=== PATIENT | female | born 1955 | race Caucasian/White ===

== ENCOUNTER → 2020-08-20 13:37 | Outpatient (CLI) | payer MEDICARE, MEDICAID, SELFPAY ==
--- NOTE | 2020-08-20 13:40 | DI.RAD.S_ITS ---
PROCEDURE: FL BARIUM SWALLOW INDICATIONS: dysphagia COMPARISON: None. FINDINGS: Function: There is mildly decreased esophageal peristalsis. Slightly delayed esophageal clearance No elicited gastroesophageal reflux. Morphology: Air-contrast images demonstrate normal mucosal morphology. Single contrast views show no esophageal strictures, extrinsic mass effects, or diverticula. Limited images of the stomach demonstrate normal appearance. IMPRESSION: Mild esophageal dysmotility Dictated by: Jay Godfrey M.D. on 08/20/2020 at 15:26 Approved by: Jay Godfrey M.D. on 08/20/2020 at 15:27
== END ==
PROVIDERS: PCP Registered Nurse; Referring Provider Registered Nurse; Visit Provider Registered Nurse
DX: R13.10 Dysphagia, unspecified (principal); K22.4 Dyskinesia of esophagus; M85.852 Other specified disorders of bone density and structure, left thigh; Z78.0 Asymptomatic menopausal state; Z72.0 Tobacco use
CPT/HCPCS: 74220; 77080

== ENCOUNTER 2022-02-08 16:41 | Emergency (ER) | payer MEDICARE, OTHER, MEDICAID, SELFPAY ==
[2022-02-08 16:44] VITALS: BP 172/93; PULSE 98; RESP 18; TEMP 36.9; O2SAT 97; BMI 28.2
[2022-02-08 17:18] LABS: Add Manual Diff / Slide Review NO; Basophils Absolute Auto 0 /uL (0-100); Basophils Percent Auto 0.6 % (0-2); Eosinophils Absolute Auto 100 /uL (0-450); Eosinophils Percent Auto 1.4 % (2-4); Hematocrit 41.1 % (36-46); Hemoglobin 14.2 g/dL (12.0-16.0); Lymphocytes Absolute Auto 1800 /uL (1100-4500); Lymphocytes Percent Auto 23.3 % (25-40); Mean Corpuscular HGB Conc 34.4 % (30-36); Mean Corpuscular Hemoglobin 30.1 PG (26-34); Mean Corpuscular Volume 87.4 fL (80-100); Monocytes Absolute Auto 700 /uL (0-900); Monocytes Percent Auto 8.5 % (3-14); Neutrophils Absolute Auto 5200 /uL (1500-7000); Neutrophils Percent Auto 66.2 % (50-75); Platelet Count 205 X10^3/uL (150-400); Red Blood Cell Count 4.71 X10^6/uL (4.0-5.2); Red Cell Distribution Width 13.8 % (11.6-14.8); White Blood Cell Count 7.8 X10^3/uL (4.5-11.0)
[2022-02-08 17:30] LABS: BUN Creatinine Ratio 27.6 (6-22); Blood Urea Nitrogen 16 mg/dL (7-17); Calcium 9.1 mg/dL (8.4-10.2); Carbon Dioxide 29 mmol/L (22-32); Chloride 106 mmol/L (98-107); Estimated Glomerular Filt Rate > 60.0 mL/min (>60); Glucose 115 mg/dL (80-110); HEMOLYSIS 28 (0-50); Potassium 4.6 mmol/L (3.4-5.1); Sodium 141 mmol/L (137-145)
--- NOTE | 2022-02-08 22:28 | ED_ITS ---
HPI - Extremity Problem General Chief complaint: Extremity Problem,Nontraumatic Stated complaint: LEGS AND FEET BURN Time Seen by Provider: 02/08/22 18:41 Source: patient Mode of arrival: Ambulatory History of Present Illness HPI Narrative: 66-year-old female daily smoker with noncontributory medical history presents with a chief complaint of many months of burning in her bilateral lower extremities. She denies pain specifically but states that they burn and sometimes her toes ache. She denies any fever chills. She denies numbness or tingling. She denies any low back pain, loss of control of bowel or bladder, fever or the use of blood thinners. She denies any recent illness with nausea, vomiting or diarrhea. She denies any dietary change or medication change. She is not having much in the way of symptoms right now. Related Data Home Medications Medication Instructions Recorded Confirmed multivitamin 1 cap PO DAILY 08/14/18 08/08/20 Allergies Allergy/AdvReac Type Severity Reaction Status Date / Time No Known Drug Allergies Allergy Verified 08/08/20 14:12 Review of Systems Review of Systems Narrative: GENERAL: Denies chills, fatigue, malaise, fever, sweats. HEENT: Denies sinus pain, ear pain, sore throat, difficulty swallowing, dizziness. RESPIRATORY: Denies dyspnea, cough, wheezing, hemoptysis, sputum. CARDIOVASCULAR: Denies chest pain, palpitations, orthopnea, edema, GASTROINTESTINAL: Denies nausea, vomiting, abdominal pain, diarrhea, constipation, melena. : Denies dysuria, frequency, incontinence, hematuria, urinary retention. MUSCULOSKELETAL: See HPI SKIN: Denies rash, skin lesions, or other NEUROLOGIC: Denies weakness, headache, numbness, change in speech, confusion, seizures, incoordination. PSYCHIATRIC: No concerning psychosocial issues. 12 point review of systems is negative except for those stated above Patient History Social History Smoking Status: Current every day smoker alcohol intake: former Smoking Status: Current every day smoker Substance Use Type: marijuana Exam Narrative Exam Narrative: GENERAL: [66] year old patient appears stated age. Well-developed patient, in obvious distress HEAD: Atraumatic. Normocephalic. EYES: Pupils equal round and reactive. Extraocular motions intact. No scleral icterus. No injection or drainage. ENT: Nose without bleeding, purulent drainage. Throat without erythema, tonsillar hypertrophy or exudate. Airway patent. NECK: Trachea midline. Non tender CARDIOVASCULAR: Regular rate and rhythm without murmurs, gallops, or rubs. RESPIRATORY: Clear to auscultation. Breath sounds equal bilaterally. No wheezes, rales, or rhonchi. GASTROINTESTINAL: Abdomen soft, non-tender, nondistended. EXTREMITIES: No edema or joint tenderness. BACK: Nontender without deformity or crepitance. No flank tenderness. NEURO: AOx3. SKIN: No rash or erythema of visible areas Initial Vital Signs Initial Vital Signs: Vital Signs Temperature 98.5 F 02/08/22 16:44 Pulse Rate 98 H 02/08/22 16:44 Respiratory Rate 18 02/08/22 16:44 Blood Pressure 172/93 H 02/08/22 16:44 Pulse Oximetry 97 02/08/22 16:44 Course Orders Ordered: ED Orders 02/08/22 17:05 BMP [Basic Metabolic Panel] Stat Complete Blood Count AUTO DIFF Stat Vital Signs Vital signs: Vital Signs - 8 hr 02/08/22 16:44 Temperature 98.5 F Pulse Rate 98 H Respiratory Rate 18 Blood Pressure 172/93 H Pulse Oximetry 97 MDM - Extremity (Nontraumatic) Lab Data Result diagrams: 02/08/22 17:05 02/08/22 17:05 Labs: Lab Results 02/08/22 02/08/22 Range/Units 17:05 17:05 WBC 7.8 (4.5-11.0) X10^3/uL RBC 4.71 (4.0-5.2) X10^6/uL Hgb 14.2 (12.0-16.0) g/dL Hct 41.1 (36-46) % MCV 87.4 (80-100) fL MCH 30.1 (26-34) PG MCHC 34.4 (30-36) % RDW 13.8 (11.6-14.8) % Plt Count 205 (150-400) X10^3/uL Neut % (Auto) 66.2 (50-75) % Lymph % (Auto) 23.3 L (25-40) % Roane % (Auto) 8.5 (3-14) % Eos % (Auto) 1.4 L (2-4) % Baso % (Auto) 0.6 (0-2) % Neut # (Auto) 5200 (1209-5110) /uL Lymph # (Auto) 1800 (9566-3214) /uL Roane # (Auto) 700 (0-900) /uL Eos # (Auto) 100 (0-450) /uL Baso # (Auto) 0 (0-100) /uL Sodium 141 (137-145) mmol/L Potassium 4.6 (3.4-5.1) mmol/L Chloride 106 (98-107) mmol/L Carbon Dioxide 29 (22-32) mmol/L BUN 16 (7-17) mg/dL Creatinine 0.58 (0.52-1.04) mg/dL Estimated GFR > 60.0 (>60) mL/min BUN/Creatinine Ratio 27.6 H (6-22) Glucose 115 H (80-110) mg/dL Calcium 9.1 (8.4-10.2) mg/dL MDM Narrative Medical decision making narrative: Multiple diagnoses considered including but not limited to arterial occlusion versus venous occlusion versus infection versus radicular pain from low back versus electrolyte abnormality versus other. There is no reproducible pain, no redness, no warmth and no pallor. She has intact dorsalis pedis pulses this, full sensation and muscle strength. Calves are soft and nontender, medial thighs are soft and nontender. She has no saddle anesthesia, depressed reflexes or sensation. Return precautions given and questions answered to her apparent satisfaction Discharge Plan Departure Patient Disposition: Home Clinical Impression: Chronic leg pain Instructions: DI for Leg Pain Activity Restrictions/Additional Instructions: *You have been diagnosed with [acute on chronic lower extremity pain. As we discussed, your history and physical exam are very reassuring and her labs are unremarkable. There is no indication currently that there is a diagnosis which would require a specific or immediate intervention. *What to do: *Please continue to take your regular medications as directed. [ ] New medication prescriptions sent to your pharmacy: [ ] [ ] New medication written as a paper prescription [ x] No new medications given *Please follow up with your primary care provider in 2-3 days, call for an appointment. Let them know you were seen in the Emergency Department and that we ask that you be seen in follow up. We will electronically transmit a record of today's note if your PCP is in our system *If you do not have a primary care provider please contact the [facility] Resource line at [phone]. They will ask some questions about your medical history and help get you set up with a doctor in the community. *Return to Emergency Department if you should have any new, worsening or concerning symptoms, such as [fever greater than 101 F, shaking chills, worsening pain, persistent vomiting or other bothersome symptoms] Prescriptions: No Action multivitamin capsule 1 cap PO DAILY 0RF Referrals: Audra De La Garza ARNP [Primary Care Provider] -
== END 2022-02-08 19:02 | disposition home or self-care (01) ==
PROVIDERS: Emergency Medicine; Emergency Provider Emergency Medicine; Family Provider Registered Nurse; PCP Registered Nurse
DX: M79.605 Pain in left leg (principal); M79.604 Pain in right leg; G89.29 Other chronic pain
CPT/HCPCS: 80048; 85025; 99281; 99282

== ENCOUNTER → 2022-02-17 07:54 | Outpatient (CLI) | payer MEDICARE, OTHER, MEDICAID, SELFPAY ==
[2022-02-17 08:21] LABS: Appearance Urine UA CLEAR; Bilirubin Urine UA NEGATIVE (NEGATIVE); Color Urine UA YELLOW; Glucose Urine UA NEGATIVE (Negative); Ketones Urine UA NEGATIVE (NEGATIVE); Leukocyte Esterase Urine UA NEGATIVE (NEGATIVE); Nitrite Urine UA NEGATIVE (Negative); Occult Blood Urine UA TRACE-INTACT (Negative); Protein Urine UA NEGATIVE (Negative); Specific Gravity Urine UA 1.025 (1.000-1.035); Urobilinogen Urine UA 0.2 E.U./dL (0.2)
[2022-02-17 08:30] LABS: pH Urine UA 5.5 (4.5-8.0)
[2022-02-17 08:31] LABS: Bacteria Urine None Seen; Culture Indicated Urine Cult Not Indicated; RBC Urine None Seen (0-5/HPF); Squamous Epithelial Cell Urine 5-10 /HPF (0-5/HPF); WBC Urine None Seen (0-5/HPF)
[2022-02-17 08:36] LABS: Hemoglobin A1C% w Est Avg Glu 5.5 % (4.0-6.0)
[2022-02-17 09:50] LABS: Alanine Aminotransferase 12 IU/L (<35); Albumin 4.4 g/dL (3.5-5.0); Albumin Globulin Ratio 1.4 (1.0-2.8); Alkaline Phosphatase 57 U/L (38-126); Aspartate Aminotransferase 20 IU/L (14-36); BUN Creatinine Ratio 36.7 (6-22); Bilirubin Total 0.4 mg/dL (0.2-1.3); Blood Urea Nitrogen 22 mg/dL (7-17); Calcium 9.5 mg/dL (8.4-10.2); Carbon Dioxide 27 mmol/L (22-32); Chloride 104 mmol/L (98-107); Cholesterol 194 mg/dL (140-199); Estimated Glomerular Filt Rate > 60.0 mL/min (>60); Globulin 3.1 g/dL (1.7-4.1); Glucose 107 mg/dL (80-110); HDL Cholesterol 59 mg/dL (40-60); HEMOLYSIS < 15 (0-50); LDL Cholesterol Calculated 119 mg/dL (<100); Potassium 4.5 mmol/L (3.4-5.1); Sodium 140 mmol/L (137-145); Total Protein 7.5 g/dL (6.3-8.2); Triglycerides 79 mg/dL (35-150)
[2022-02-17 10:37] LABS: Vitamin B12 899 pg/mL (239-931)
== END ==
PROVIDERS: Family Provider Registered Nurse; PCP Registered Nurse Diabetes Educator; Referring Provider Registered Nurse Diabetes Educator; Visit Provider Registered Nurse Diabetes Educator
DX: I10 Essential (primary) hypertension (principal); R20.0 Anesthesia of skin; R35.0 Frequency of micturition; R53.83 Other fatigue
CPT/HCPCS: 36415; 80053; 80061; 81001; 82607; 83036; 84443

== ENCOUNTER → 2022-03-10 12:10 | Outpatient (CLI) | payer MEDICARE, OTHER, MEDICAID, SELFPAY ==
--- NOTE | 2022-03-10 12:12 | DI.RAD.S_ITS ---
PROCEDURE: XR LUMBAR SPINE MIN 4V INDICATIONS: radicular symptoms TECHNIQUE: 5 views of the lumbar spine were acquired, including bilateral oblique views. COMPARISON: [facility], CT, CT ABDOMEN PELVIS WITH CONTRAST, 03/26/2018, 0:54. FINDINGS: Bones: 5 nonrib-bearing vertebrae are present. Redemonstrated grade 1 anterolisthesis at L5-S1, measuring approximately 5.3 mm. Moderate disc height loss with vacuum phenomena at L5-S1 with facet arthrosis. No vertebral body compression fractures. No suspicious bony lesions. Soft tissues: Overlying bowel gas pattern is normal. No suspicious soft tissue calcifications. Oblique images: Bilateral L5 pars defects. IMPRESSION: Lumbar spine degeneration as detailed above Dictated by: Rubén Singh M.D. on 03/10/2022 at 15:18 Approved by: Rubén Singh M.D. on 03/10/2022 at 15:20
== END ==
PROVIDERS: Family Provider Registered Nurse; PCP Registered Nurse Diabetes Educator; Referring Provider Registered Nurse Diabetes Educator; Visit Provider Registered Nurse Diabetes Educator
DX: M51.17 Intervertebral disc disorders with radiculopathy, lumbosacral region (principal); M47.27 Other spondylosis with radiculopathy, lumbosacral region
CPT/HCPCS: 72110